=== PATIENT | female | born 1995 | race Asian ===

== ENCOUNTER 2017-12-18 05:12 | Emergency (ER) | payer OTHER ==
[2017-12-18] MEDS ORDERED: NS 0.9% 1000 ML* 1,000 ML IV ONE (05:29)
[2017-12-18 06:32] LABS: ABS Basophils 0.1 10^3/ul (0-0.2); ABS Eosinophils 0.9 10^3/ul (0-0.6); ABS Lymphocytes 2.4 10^3/ul (1.0-4.8); ABS Monocytes 0.4 10^3/ul (0-0.8); ABS Neutrophils 3.8 10^3/ul (1.5-7.7); ABS Nucleated RBC 0 10^3/ul; Eosinophil % 11.5 % (0-6); Hematocrit 36 % (35-47); Hemoglobin 12.5 g/dl (12.0-16.0); Lymphocyte % 31.2 % (25-47); Mean Corpuscular HGB Conc 34 g/dl (31-36); Mean Corpuscular Hemoglobin 33 pg (27-31); Mean Corpuscular Volume 97 fL (80-97); Mean Platelet Volume 7.5 um3 (7.4-10.4); Nucleated Red Blood Cells % 0; Platelet Count 248 10^3/ul (150-450); Red Blood Count 3.76 10^6/ul (4.0-5.4); Red Cell Distribution Width 13 % (10.5-15); White Blood Count 7.6 10^3/ul (3.5-10.8)
[2017-12-18 06:55] LABS: EGFR Non-African American 142.5 (>60)
[2017-12-18 11:51] VITALS: BP 125/71
--- NOTE | 2017-12-18 18:33 | ED ---
Felix Rios Angela, scribed for Chito Littlejohn MD on 12/18/17 at 0716 . Progress - Progress Note Progress Note: This pt was signed out by Dr. Delgado, pending disposition, awaiting alcohol level and metabolism. Test results show serum alcohol of 259. On re-evaluation pt has clear speech and a steady gait. She wishes to take an Uber home. Pt has no obvious injuries. Therefore, she will be discharged home with follow up from [facility] in 2- 3 days, in stable condition. Re-Evaluation - Re-Evaluation First Eval Re-Evaluation Time: 11:19 Change: Improved Comment: Pt has clear speech and a steady gait. She wishes to take an Uber home. Pt has no obvious injuries. She will be discharged home. Course/Dx - Diagnoses Provider Diagnoses: Alcohol intoxication Discharge - Sign-Out/Discharge Documenting (check all that apply): Discharge/Admit/Transfer - Discharge, Receiving Sign-Out Receiving patient FROM: Jesse Delgado - Discharge Plan Condition: Stable Disposition: HOME Patient Education Materials: Alcohol Intoxication (ED) Referrals: [facility] [Outside] Additional Instructions: Follow up with [facility] in 2-3 days. RETURN TO THE EMERGENCY DEPARTMENT FOR CHANGING OR WORSENING SYMPTOMS. The documentation as recorded by the Felix munoz Angela accurately reflects the service I personally performed and the decisions made by , Chito Littlejohn MD.
--- NOTE | 2017-12-18 20:00 | ED ---
Grace Rios Rebecca, scribed for Jesse Delgado MD on 12/18/17 at 0545 . Altered Mental Status - HPI Summary HPI Summary: Pt is a 22 y/o F BIBA who presents to ED after being found outside, unconscious. 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 She was then planning on going to her boyfriend's house and while sitting outside, waiting for someone to pick her up, she had fallen asleep. Unsure of exactly how long she was outside, likely multiple hours. Confirms EtOH use, denies any other drug use. 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 Alleviating Factor(s): Other - Spontaneous resolution Associated Signs And Symptoms: Positive: Negative - Allergies/Home Medications Allergies/Adverse Reactions: Allergies Allergy/AdvReac Type Severity Reaction Status Date / Time No Known Allergies Allergy Verified 12/18/17 05:43 Home Medications: Home Medications NK [No Home Medications Reported] 12/18/17 [History Confirmed 12/18/17] PMH/Surg Hx/FS Hx/Imm Hx Previously Healthy: Yes Endocrine/Hematology History: Denies: Hx Diabetes Cardiovascular History: Denies: Hx Hypertension Infectious Disease History: Yes Infectious Disease History: Denies: Traveled Outside the [place] in Last 30 Days - Family History Known Family History: Negative: Cardiac Disease - Social History Occupation: Student Alcohol Use: Occasionally Substance Use Type: Reports: None Smoking Status (MU): Never Smoked Tobacco Review of Systems Positive: Other - EtOH use Neurological: Other - Unconscious/unresponsive EMERGENCY VEHICLE OPERATOR - resolved All Other Systems Reviewed And Are Negative: Yes Physical Exam - Summary Physical Exam Summary: GENERAL: ~Patient is a well developed and nourished F who is lying comfortable in the stretcher. ~Patient is not in any acute respiratory distress. HEAD AND FACE: Normocephalic EYES: PERRLA, EOMI x 2. EARS: Hearing grossly intact. MOUTH: Oropharynx within normal limits. NECK: Supple, trachea is midline, no adenopathy, no JVD, no carotid bruit. CHEST: Symmetric, no tenderness at palpation LUNGS: Clear to auscultation bilaterally. No wheezing or crackles. CVS: Regular rate and rhythm, S1 and S2 present, no murmurs or gallops appreciated. ABDOMEN: Soft, non-tender. Bowel sounds are normal. No abdominal abnormal pulsations. EXTREMITIES: Full ROM in all major joints, no edema, no cyanosis or clubbing. NEURO: Alert and oriented x 3. No acute neurological deficits. Speech is normal and follows commands. SKIN: Dry and warm Triage Information Reviewed: Yes Vital Signs On Initial Exam: Initial Vitals Pulse BP Pulse Ox 64 109/73 98 12/18/17 05:17 18 05:17 12/18/17 05:17 Vital Signs Reviewed: Yes Diagnostics - Vital Signs Vital Signs Temp Pulse Resp BP Pulse Ox 12/18/17 05:24 97.4 F 63 18 109/73 99 12/18/17 05:19 71 99 12/18/17 05:17 64 109/73 98 - Laboratory Result Diagrams: 12/18/17 06:15 Lab Statement: Any lab studies that have been ordered have been reviewed, and results considered in the medical decision making process. Altered Mental Statu Course/Dx - Course Assessment/Plan: Pt is a 22 y/o F who admits to drinking alcohol, brought in because she was found outside sleeping. Her blood alcohol level is pending, she will be signed out pending lab results as well as IV hydration and reevaluation. - Diagnoses Provider Diagnoses: Alcohol intoxication Discharge - Sign-Out/Discharge Documenting (check all that apply): Sign-Out Patient Signing out patient TO: Chito Littlejohn - Discharge Plan Condition: Stable The documentation as recorded by the Grace munoz Rebecca accurately reflects the service I personally performed and the decisions made by me, Jesse Delgado MD.
== END 2017-12-18 11:26 | disposition home or self-care (01) ==
LOC: ED 05:12
DX: F10.129 Alcohol abuse with intoxication, unspecified (principal)
CPT/HCPCS: 36415; 80053; 80320; 84702; 85025; 96360; 96361; 99283; G0480